=== PATIENT | female | born 1970 | race Caucasian/White ===

== ENCOUNTER 2017-06-19 21:49 | Emergency (ER) | payer BC ==
[2017-06-19] MEDS ORDERED: ALUMINUM & MAGNESIUM HYDROXIDE 30 ML UD PO ONE (22:23)
[2017-06-19] MEDS ORDERED: ASPIRIN TABLET 325 MG TAB PO ONE (22:23)
[2017-06-19] MEDS ORDERED: POTASSIUM CHLORIDE ELIXIR 20 MEQ/15 ML UD PO ONE (23:07)
--- NOTE | 2017-06-20 00:03 | RAD ---
EXAM DESCRIPTION: Chest,2 Views CLINICAL HISTORY: back/chest discomfort COMPARISON: None. FINDINGS: Frontal and lateral views of the chest. The cardiomediastinal silhouette has normal size and contour. No consolidation, pneumothorax, or pleural effusion. No displaced rib fractures identified. Upper abdominal soft tissues are unremarkable. Leads overlie the chest. IMPRESSION: 1. No acute pulmonary process identified. Electronically signed by: Wong Ríos 06/20/2017 12:02 AM [facility]
--- NOTE | 2017-06-20 01:40 | ED.PDOC ---
History of Present Illness - General Chief Complaint: Syncope/Near Syncope Stated Complaint: Near syncope Time Seen by Provider: 06/19/17 22:08 Source: patient Exam Limitations: no limitations - History of Present Illness Initial Comments: the patient's a [age]-year-old female presenting to the emergency room secondary to a symptom of near syncope. The patient reports that over the last few weeks she's had episodes of bradycardia. She feels that she had one of those episodes today with a heart rate going down to 50s. She was just in her hotel room when this occurred. She does not get any chest pain. She feels that she had some discomfort between her shoulder blades. She feels like she had a near syncopal episode but did not pass out. She became diaphoretic. The episode passed on its own. She does have a history of significant iron deficiency. She is not taking any iron currently. Timing/Duration: unsure Severity: mild Improving Factors: nothing Worsening Factors: nothing Associated Symptoms: diaphoresis, loss of appetite, malaise Allergies/Adverse Reactions: Allergies Flu Virus Vaccine Allergy (Verified 06/19/17 22:18) Naproxen [From Naprosyn] Allergy (Verified 06/19/17 22:23) Penicillins Allergy (Verified 06/19/17 22:18) Home Medications: Ambulatory Orders Losartan Potassium [Cozaar] 25 mg PO BEDTIME 06/19/17 Famotidine 20 mg PO BID #60 tab 06/20/17 Potassium Chloride [K-Tab] 20 meq PO DAILY #30 tab 06/20/17 Review of Systems - Review of Systems Constitutional: States: malaise EENTM: States: no symptoms reported Respiratory: States: no symptoms reported Cardiology: States: palpitations Gastrointestinal/Abdominal: States: no symptoms reported Genitourinary: States: no symptoms reported Musculoskeletal: States: no symptoms reported Skin: States: no symptoms reported Neurological: States: no symptoms reported Endocrine: States: no symptoms reported All other Systems: No Change from Baseline Past Medical History (General) - Patient Medical History Hx Seizures: No Hx Stroke: No Hx Dementia: No Hx Asthma: No Hx of COPD: No Hx Cardiac Disorders: No Hx Congestive Heart Failure: No Hx Pacemaker: No Hx Hypertension: Yes Hx Thyroid Disease: Yes - hypothyroid Hx Diabetes: No Hx Gastroesophageal Reflux: No Hx Renal Disease: No Hx Cancer: No Hx of HIV: No Hx Hepatitis C: No Hx MRSA: No Surgical History: tonsillectomy - Vaccination History Hx Tetanus, Diphtheria Vaccination: No Hx Influenza Vaccination: No - allergy Hx Pneumococcal Vaccination: No Immunizations Up to Date: Yes - Social History Hx Tobacco Use: No Hx Alcohol Use: No - Female History Patient is a Female of Child Bearing Age (10 -59 yrs old): Yes Patient : No Family Medical History - Family History Father Living Status: Cause of : Brain cancer Physical Exam - Physical Exam General Appearance: Alert, Anxious, Comfortable, No apparent distress Eye Exam: bilateral normal Ears, Nose, Throat: normal pharynx, other - chronic hearing loss Neck: full range of motion, supple Respiratory: lungs clear, normal breath sounds, no respiratory distress, no accessory muscle use Cardiovascular/Chest: normal peripheral pulses, regular rate, rhythm, no edema Peripheral Pulses: radial,right: 2+, radial,left: 2+, dorsalis pedis,right: 2+, dorsalis pedis,left: 2+ Gastrointestinal/Abdominal: non tender, soft Rectal Exam: deferred Back Exam: no CVA tenderness, no vertebral tenderness Extremity: non-tender, no pedal edema, no calf tenderness, normal capillary refill Neurologic: no motor/sensory deficits, alert, normal mood/affect, oriented x 3 Skin Exam: normal color Comments: Vital Signs - 24 hr 06/19/17 06/19/17 06/19/17 22:18 22:19 23:50 Temperature 99.9 F H Pulse Rate [ 105 H 105 H 85 Left Radial] Respiratory 20 20 20 Rate Blood Pressure 144/95 107/69 [Left Arm] O2 Sat by Pulse 100 100 Oximetry 06/20/17 01:01 Temperature Pulse Rate [ 84 Left Radial] Respiratory 20 Rate Blood Pressure 117/71 [Left Arm] O2 Sat by Pulse 100 Oximetry Progress - Progress Progress: 06/20/17 01:42 the patient's a 47-year-old female presenting to the emergency room secondary to a feeling of bradycardia and a near syncopal episode. The patient has not demonstrated any further significant bradycardia here. She was found to have significant hypokalemia and will be placed on a potassium supplement. Additionally she most likely has a significant iron deficiency which may be giving her esophageal symptoms which may be contributing to some of her symptoms. I'm going to place the patient on Pepcid twice a day for the next month. Gastritis may be contributing to iron deficiency. She needs to follow up with her primary care doctor and have a formal iron panel done and assuming that it turns up positive she should have endoscopies performed. Additionally she may require through her primary care doctor IV iron to correct her iron deficiency adequately and reduce symptoms. She should also get set up for an exercise tolerance test with her primary care doctor. ER warnings were given. - Results/Orders Results/Orders: Laboratory Tests 06/19/17 06/19/17 06/19/17 22:15 22:15 22:15 WBC 7.8 RBC 4.33 Hgb 10.3 L Hct 31.2 L MCV 72.0 L MCH 23.7 L MCHC 33.1 RDW 15.9 H Plt Count 313 MPV 8.0 Absolute Neuts (auto) 4.20 Absolute Lymphs (auto) 2.70 Absolute Monos (auto) 0.70 Absolute Eos (auto) 0.20 Absolute Basos (auto) 0.00 Neutrophils % 54.0 Lymphocytes % 34.6 Monocytes % 8.8 Eosinophils % 2.0 Basophils % 0.6 Normal RBC Morphology 3+hypochromia D-Dimer, Quantitative < 230 Sodium 136 Potassium 3.2 L Chloride 101 Carbon Dioxide 29 Anion Gap 9.2 L BUN 8 Creatinine 0.82 BUN/Creatinine Ratio 9.8 L Random Glucose 102 Serum Osmolality 270.5 L Calcium 9.1 Magnesium 2.0 Total Bilirubin 0.2 AST 32 ALT 28 Alkaline Phosphatase 57 Creatine Kinase 253 H* CK-MB (CK-2) 6.3 H* CK-MB (CK-2) % 2.49 Troponin I < 0.02 B-Natriuretic Peptide 155.0 H Serum Total Protein 7.4 Albumin 4.1 Globulin 3.3 Albumin/Globulin Ratio 1.2 Serum HCG, Qual 06/19/17 06/20/17 22:15 00:55 WBC RBC Hgb Hct MCV MCH MCHC RDW Plt Count MPV Absolute Neuts (auto) Absolute Lymphs (auto) Absolute Monos (auto) Absolute Eos (auto) Absolute Basos (auto) Neutrophils % Lymphocytes % Monocytes % Eosinophils % Basophils % Normal RBC Morphology D-Dimer, Quantitative Sodium Potassium Chloride Carbon Dioxide Anion Gap BUN Creatinine BUN/Creatinine Ratio Random Glucose Serum Osmolality Calcium Magnesium Total Bilirubin AST ALT Alkaline Phosphatase Creatine Kinase 219 H* CK-MB (CK-2) 5.3 H* CK-MB (CK-2) % 2.42 Troponin I < 0.02 B-Natriuretic Peptide Serum Total Protein Albumin Globulin Albumin/Globulin Ratio Serum HCG, Qual Negative chest x-ray is grossly within normal limits. EKG showsnormal sinus rhythm at 94 bpm. Normal QT interval. T-wave inversion in lead V3 but otherwise no acute ST segment changes consistent with ischemia. Normal axis. Departure - Departure Clinical Impression: Hypokalemia, Microcytic hypochromic anemia Disposition: Discharge to Home or Self Care Condition: Fair Departure Forms: ED Discharge - Pt. Copy, Patient Portal Self Enrollment Instructions: DI for Iron Deficiency Anemia-Adult, DI for Hypokalemia Diet: regular diet Activity: increase activity as tolerated Prescriptions: Famotidine 20 mg PO BID #60 tab Potassium Chloride [K-Tab] 20 meq PO DAILY #30 tab Home Medications: Ambulatory Orders Losartan Potassium [Cozaar] 25 mg PO BEDTIME 06/19/17 Famotidine 20 mg PO BID #60 tab 06/20/17 Potassium Chloride [K-Tab] 20 meq PO DAILY #30 tab 06/20/17 Additional Instructions: the patient's a 47-year-old female presenting to the emergency room secondary to a feeling of bradycardia and a near syncopal episode. The patient has not demonstrated any further significant bradycardia here. She was found to have significant hypokalemia and will be placed on a potassium supplement. Additionally she most likely has a significant iron deficiency which may be giving her esophageal symptoms which may be contributing to some of her symptoms. I'm going to place the patient on Pepcid twice a day for the next month. Gastritis may be contributing to iron deficiency. She needs to follow up with her primary care doctor and have a formal iron panel done and assuming that it turns up positive she should have endoscopies performed. Additionally she may require through her primary care doctor IV iron to correct her iron deficiency adequately and reduce symptoms. She should also get set up for an exercise tolerance test with her primary care doctor. ER warnings were given.she should follow up with her primary care doctor early this coming week.
[2017-06-20 02:01] VITALS: BP 145/80; TEMP 98.8; O2SAT 98
== END 2017-06-20 02:01 | disposition home or self-care (01) ==
LOC: ER 21:49
DX: D50.9 Iron deficiency anemia, unspecified (principal); E87.6 Hypokalemia; I10 Essential (primary) hypertension; E07.9 Disorder of thyroid, unspecified